=== PATIENT | female | born 1985 | race Caucasian/White ===

== ENCOUNTER 2019-05-05 13:01 | Observation (INO) ==
[~2019-05-05 13:01] MED LIST: ACETAMINOPHEN 500 MG TABLET PO ONE; CELECOXIB 200 MG CAPSULE PO ONE; Gabapentin 600 MG TABLET PO ONE; LIDOCAINE MPF 2% - 5 ML (20 MG/1 ML) ONE; LIDOCAINE W/ SODIUM BICARB 0.5 ML SYR SUBD ONE; MIDAZOLAM HCL 2 MG/2 ML VIAL ONE; Nasal Sanitizer POPSWAB ampule 3 AMP (Nozin) PREOP DOSE ENOS SCH; PANTOPRAZOLE 20 MG TABLET.DR PO ONE; PROPOFOL 10 MG/1 ML (200 MG/20 ML) VIAL IV ONE; ceFAZolin Inj 2gm (Premix) 2 GM/50 ML BAG IV ONE; fentaNYL Inj 100 MCG/2 ML VIAL ONE
[2019-05-05] MEDS ORDERED: BUPivacaine Inj 0.25% PF - 10ml vial ONE (13:26)
[2019-05-05] MEDS ORDERED: EPINEPHrine Inj (1:1,000) 30mg/30ml vial ONE (13:26)
[2019-05-05] MEDS ORDERED: CELECOXIB 200 MG CAPSULE PO ONE (13:42)
[2019-05-05] MEDS ORDERED: ceFAZolin Inj 2gm (Premix) 2 GM/50 ML BAG IV ONE (13:43)
[2019-05-05] MEDS ORDERED: ACETAMINOPHEN 500 MG TABLET PO ONE (13:43)
[2019-05-05] MEDS ORDERED: Gabapentin 600 MG TABLET PO ONE (13:43)
[2019-05-05] MEDS ORDERED: Lactated Ringers 1,000 ML PRIMARY IV ONE ×2 (13:43→16:27)
[2019-05-05] MEDS ORDERED: LIDOCAINE W/ SODIUM BICARB 0.5 ML SYR ONE ×2 (13:44→14:29)
[2019-05-05] MEDS ORDERED: PANTOPRAZOLE 20 MG TABLET.DR PO ONE (13:44)
[2019-05-05] MEDS ORDERED: BUPivacaine Liposome/PF (Exparel) Inj 20ml vial INFIL ONE (14:04)
[2019-05-05] MEDS ORDERED: BUPIVACAINE 0.5% W/ EPI - 10 ML VIAL ONE (14:04)
[2019-05-05] MEDS: Lactated Ringers 1,000 ML PRIMARY IV SCH ×2 (14:32→19:38)
[2019-05-05] MEDS ORDERED: Propofol 1,000 MG/100 ML VIAL IV ONE ×2 (14:34→15:24)
[2019-05-05] MEDS ORDERED: KETAMINE 100 MG/1 ML - 5 ML ONE (15:23)
[2019-05-05] MEDS ORDERED: BETAMET ACET/BETAMET NA PH 6 MG/1 ML - 5 ML ONE (15:49)
[2019-05-05] MEDS ORDERED: Ropivacaine 0.2% VIAL 20 ML ONE (15:49)
[2019-05-05] MEDS: HYDROmorphone 2 MG/1 ML IVP PRN ×2 (16:00→16:25)
[2019-05-05] MEDS ORDERED: KETOROLAC 30 MG/1 ML VIAL ONE (16:04)
[2019-05-05] MEDS ORDERED: oxyCODONE/APAP 7.5/325 Tab 1 TAB TAB PO PRN (16:07)
[2019-05-05] MEDS ORDERED: KETOROLAC 15 MG/1 ML VIAL IVP PRN (16:07)
[2019-05-05] MEDS ORDERED: HYDROmorphone 2 MG/1 ML ONE (16:12)
[2019-05-05] MEDS ORDERED: HYDROcodone-APAP 7.5 MG-325 MG TABLET PO ONE ×2 (16:34→16:36)
[2019-05-05] MEDS ORDERED: DIAZEPAM 5 MG TABLET ONE ×2 (17:05→17:06)
[2019-05-05] MEDS ORDERED: DIAZEPAM 5 MG TABLET PO ONE (17:06)
[2019-05-05] MEDS ORDERED: Acetaminophen 1000mg Inj 1,000 MG/100 ML VIAL IV ONE (17:30)
[2019-05-05] MEDS ORDERED: Acetaminophen 1000mg Inj 1,000 MG/100 ML VIAL IV PRN (17:47)
[2019-05-05] MEDS ORDERED: oxyCODONE IR Tab 5 MG TAB PO PRN (17:47)
[2019-05-05] MEDS: ONDANSETRON 4 MG/2 ML VIAL IVP PRN ×2 (18:00→23:07)
[2019-05-05] MEDS ORDERED: ONDANSETRON 4 MG/2 ML VIAL ONE (18:03)
[2019-05-05] MEDS: oxyCODONE IR Tab 5 MG TAB PO PRN (23:09)
[2019-05-06] MEDS: oxyCODONE IR Tab 5 MG TAB PO PRN ×2 (03:10→07:21)
[2019-05-06 03:17] VITALS: RESP 20
[2019-05-06 07:20] VITALS: BP 136/77; TEMP 97.4; O2SAT 96
== END 2019-05-06 10:45 | disposition home or self-care (01) ==
LOC: MED/SURG 13:01 → OR 13:01
PROVIDERS: ADMIT Orthopaedic Surgery; ATTEND Orthopaedic Surgery